=== PATIENT | male | born 1985 | race Two or more races ===

== ENCOUNTER 2025-08-30 15:18 | Emergency (ER) | payer OTHER ==
[~2025-08-30] VITALS: Ht 170.2 cm; Wt 70.4 kg
[2025-08-30] MEDS: ACETAMINOPHEN 325 MG TABLET PO ONE (16:27)
[2025-08-30] MEDS: AMOX TR/POT CLAV 875 MG/125 MG TABLET PO ONE (17:12)
[2025-08-30 18:47] VITALS: BP 111/68; PULSE 80; RESP 18; TEMP 98.1; O2SAT 100
== END 2025-08-30 19:08 | disposition short-term general hospital (02) ==
LOC: EMS 15:18
DX: S02.40CA Maxillary fracture, right side, initial encounter for closed fracture (principal); S02.2XXA Fracture of nasal bones, initial encounter for closed fracture; Y04.0XXA Assault by unarmed brawl or fight, initial encounter; Y93.89 Activity, other specified; Y92.89 Other specified places as the place of occurrence of the external cause; Y99.8 Other external cause status
CPT/HCPCS: 70450; 70486; 72125; 99285